=== PATIENT | female | born 1995 | race Two or more races ===

== ENCOUNTER 2018-10-10 15:19 | Outpatient (CLI) | payer OTHER ==
[~2018-10-10 15:19] MED LIST: LEVSIN/SL0.125 MG SL; PROTONIX40 MG PO
== END 2018-10-10 15:22 | disposition home or self-care (01) ==
LOC: LAB 15:19
DX: D64.89 Other specified anemias (principal)

== ENCOUNTER 2018-12-10 17:07 | Emergency (ER) | payer OTHER ==
[~2018-12-10] VITALS: Ht 167.6 cm; Wt 51.7 kg
== END 2018-12-10 21:37 | disposition home or self-care (01) ==
LOC: ER 17:07
DX: F41.9 Anxiety disorder, unspecified (principal); T38.0X5A Adverse effect of glucocorticoids and synthetic analogues, initial encounter